=== PATIENT | female | born 1980 | race Caucasian/White ===

== ENCOUNTER 2020-03-18 09:24 | Emergency (ER) | payer OTHER, MEDICAID ==
[~2020-03-18] VITALS: Ht 160 cm; Wt 87.0 kg
[2020-03-18] MEDS ORDERED: MORPHINE SULFATE 4 MG/ML CPJ (NOT FOR IM USE) IV STA (10:26)
[2020-03-18] MEDS ORDERED: ONDANSETRON HCL 4MG/2ML INJ IV STA (10:26)
[2020-03-18] MEDS ORDERED: SODIUM CHLORIDE 0.9% 1,000 ML IV ONE (10:30)
[2020-03-18 10:45] LABS: BASOPHILS % 0.4 % (0.0-2.0); EOSINOPHILS % 0.5 % (0.0-5.0); HEMATOCRIT. 40.6 % (36.0-48.0); HEMOGLOBIN. 13.4 g/dL (12.0-16.0); LYMPHOCYTES % 28.4 % (20.0-50.0); MEAN CORPUSCULAR HEMOGLOBIN 30.8 pg (28.0-32.0); MEAN CORPUSCULAR VOLUME 93.4 fL (81.0-99.0); MEAN PLATELET VOLUME 9.8 fl (7.4-10.4); MONOCYTES % 6.2 % (2.0-8.0); NEUTROPHILS % 64.5 % (40.0-76.0); PLATELET 225 x1000/uL (130-400); RED BLOOD CELL COUNT 4.35 mill/uL (4.2-5.4)
[2020-03-18 10:52] LABS: CHLORIDE 106 mEq/L (98-107)
[2020-03-18 10:54] LABS: PROTHROMBIN TIME 10.2 sec (9.6-11.0)
[2020-03-18 10:56] LABS: CLARITY URINE CLEAR (CLEAR); COLOR URINE DK YELLOW (YELLOW); KETONES URINE NEGATIVE (NEGATIVE); LEUKOCYTE ESTERASE URINE TRACE (NEGATIVE); NITRITE URINE NEGATIVE (NEGATIVE); OCCULT BLOOD URINE 1+ (NEGATIVE); PH URINE 7.5 (4.5-8.0); PROTEIN URINE NEGATIVE (NEGATIVE); SPECIFIC GRAVITY URINE 1.022 (1.005-1.030); UROBILINOGEN URINE 0.2 E.U./dL (0.2-1.0)
[2020-03-18 13:30] VITALS: BP 130/66
[2020-03-19] MEDS ORDERED: SODIUM CHLORIDE 0.9% 1,000 ML IV ONE (11:30)
== END 2020-03-18 14:54 | disposition home or self-care (01) ==
LOC: ER 09:29
DX: R10.9 Unspecified abdominal pain (principal)
CPT/HCPCS: 36415; 71045; 74176; 76830; 76856; 80053; 81003; 81025; 83690; 85025; 85610; 96361; 96374; 96375; 99285; J2270; J2405; J7030